=== PATIENT | female | born 1950 | race Caucasian/White ===

== ENCOUNTER 2017-02-08 13:35 | Emergency (ER) | payer MEDICAID, OTHER ==
[~2017-02-08] VITALS: Ht 154.9 cm; Wt 71.0 kg
[~2017-02-08 13:35] MED LIST: CLIN1CAP5 PO; DICL75 PO; MMW SSP; VENTAER INH
[2017-02-08 13:49] VITALS: BP 129/72; PULSE 89; RESP 18; TEMP 98; O2SAT 98
[2017-02-08] MEDS ORDERED: rescue inhaler (13:59)
[2017-02-08] MEDS ORDERED: PAXI20TA PO (13:59)
[2017-02-08] MEDS ORDERED: XANA1TAB2 PO (13:59)
[2017-02-08] MEDS ORDERED: nebulizer (13:59)
--- NOTE | 2017-02-08 14:33 | PD ---
HPI Chief Complaint: Respiratory Symptoms Time Seen by Provider: 14:29 Travel History International Travel<30 days: No Contact w/Intl Traveler<30days: No Traveled to known affect area: No History of Present Illness HPI 66-year-old female with history of hepatitis C, bipolar, COPD presents to the ED for evaluation of dental pain and medication refill. Patient states that she is out of albuterol for her nebulizer as well as her rescue inhaler. She also complains of dental pain. She denies fever, chills, ear pain, sinus congestion, productive cough, difficulty opening and closing her mouth. She states that her PCP no longer takes her insurance (forthe last 2 months.) She states that she has attempted to get an new provider and was told that she has to go to [place]. She states that she is unable to go that far. She states that she was seen in this ED a "few weeks ago" and provided refils. She states that she has been unable to find a dentist to treat her dental problems. PFSH Past Medical History Asthma: No Autoimmune Disease: No Anxiety: Yes Depression: Yes COPD: Yes Cerebrovascular Accident: No Hepatitis: Yes (c) Psychiatric: Yes (BIPOLAR) Respiratory: Yes (copd) Seizures: No Thyroid Disease: No ?: Not Menopausal: Yes Past Surgical History Section: Yes Social History Alcohol Use: Yes (occas. beer) Tobacco Use: No (states quit 6 months ago smoked cigs 1 ppd) Substance Use: No Allergies-Medications (Allergen,Severity, Reaction): Coded Allergies: Codeine (Verified Allergy, Severe, 02/08/17) Penicillin (Verified Allergy, Severe, 02/08/17) Reported Meds & Prescriptions Reported Meds & Active Scripts Active Reported Paxil (Paroxetine HCl) 20 Mg Tab 20 Mg PO DAILY Xanax (Alprazolam) 1 Mg Tab 1 Mg PO Q8H PRN [rescue inhaler] [nebulizer] Review of Systems Except as stated in HPI: all other systems reviewed are Neg Physical Exam Narrative GENERAL: Well-nourished, well-developed white female in no acute distress. SKIN: Focused skin assessment warm/dry. HEAD: Normocephalic. EYES: No scleral icterus. No injection or drainage. NECK: Supple, trachea midline. No JVD or lymphadenopathy. ENT: Pearly sánchez tympanic membranes bilaterally. Oropharynx without erythema, edema or exudate. DENTAL: Multiple broken and chipped teeth. Multiple missing teeth. No malocclusion. Dental caries with erosion of the tooth to the gum line of teeth 20 and 14. Surrounding gingiva is tender, mildly erythematous. No fluctuance. CARDIOVASCULAR: Regular rate and rhythm without murmurs, gallops, or rubs. RESPIRATORY: Breath sounds clear and equal bilaterally. No accessory muscle use. GASTROINTESTINAL: Abdomen soft, non-tender, nondistended. MUSCULOSKELETAL: No cyanosis, or edema. Walks with a normal gait. BACK: Nontender without obvious deformity. No CVA tenderness. Data Data Last Documented VS Vital Signs Date Time Temp Pulse Resp B/P Pulse Ox O2 Delivery O2 Flow Rate FiO2 02/08/17 13:49 98.0 89 18 129/72 98 MDM Medical Decision Making Medical Screen Exam Complete: Yes Emergency Medical Condition: Yes Differential Diagnosis dentalgia versus dental caries versus dental abscess versus medication refill versus other Narrative Course 66-year-old female with history of hepatitis C, bipolar, COPD presents to the ED for evaluation of dental pain and medication refill. Patient states that she is out of albuterol for her nebulizer as well as her rescue inhaler. She also complains of dental pain. She denies fever, chills, ear pain, sinus congestion, productive cough, difficulty opening and closing her mouth. Vitals reviewed. Patient is resting comfortably on the stretcher on PE. No increased work of breathing. ENT exam is unremarkable. Poor dentition overall. There are dental caries with erosion of the tooth and gumline of teeth 20 and 14. Surrounding gingiva is tender, mildly edematous, no fluctuance. Breath sounds clear and equal bilaterally. Patient was prescribed clindamycin 300mg twice a day 7 days , Magic mouthwash and diclofenac. Her albuterol nebulizer treatments and rescue inhaler restrictions were renewed. She is instructed take the medications as prescribed, follow up with the dentist, to reestablish primary care soon as possible. She was provided a list of community resources for dentistry. She indicated understanding of the instructions. She is agreeable to the care plan. She is stable and discharged home. Diagnosis Primary Impression: Dental caries into pulp Additional Impressions: Dentalgia Medication refill Referrals: Primary Care Physician Patient Instructions: Dental Caries (ED), General Instructions Additional Instructions: Take medications as prescribed. Re-establish a primary care provider as soon as possible. Return to the ED for any URGENT or EMERGENT medical condition. Med/Other Pt SpecificInfo: Prescription(s) given Scripts Diclofenac Sodium DR 75 Mg Tabdr75 Mg PO BID #10 TAB Ref 0 Prov:Celestine Carney MD 02/08/17 Avnntgce-Qzyuhklmdoaksqi-Kewqjcart Liq (Magic Mouthwash Adult Liq)120 Ml Susp10 Ml SWISH-SWAL ACHS #120 ML Ref 0 Each 5mL contains: Nystatin 200,000units, Diphenhydramine 4.25mg, Viscous Lidocaine 10mg, Mitchell syrup 0.8 mL Prov:Celestine Carney MD 02/08/17 Clindamycin 150 Mg [id number] Mg PO Q8HR 7 Days Ref 0 Prov:Celestine Carney MD 02/08/17 Albuterol Neb 2.5 Mg/0.5 Ml Neb2.5 Mg NEB TID NEB PRN (SHORTNESS OF BREATH) #90 NEBULE Ref 0 Note: The Albuterol Sulfate Inhalation Solution is concentrated and must be diluted. Read complete instructions carefully before using. Prov:Celestine Carney MD 02/08/17 Albuterol 18 GM Inh (Ventolin Hfa 18 GM Inh)90 Mcg/Act Aer2 Puff INH Q4-6H PRN ( SHORTNESS OF BREATH) #1 INHALER Ref 0 Prov:Celestine Carney MD 02/08/17 Disposition: 01 DISCHARGE HOME Condition: Stable Romina Curran Feb 08, 2017 14:33
[2017-02-08] MEDS ORDERED: MAGICADU2 SWISH-SWAL (14:36)
[2017-02-08] MEDS ORDERED: ALBU.5I NEB (14:36)
[2017-02-08] MEDS ORDERED: VENTAER INH (14:36)
[2017-02-08] MEDS ORDERED: DICL75TA PO (14:36)
[2017-02-08] MEDS ORDERED: CLIN1CAP5 PO (14:36)
== END 2017-02-08 15:11 | disposition home or self-care (01) ==
LOC: PHEFT 13:35
DX: K02.9 Dental caries, unspecified (principal); B19.20 Unspecified viral hepatitis C without hepatic coma; J44.9 Chronic obstructive pulmonary disease, unspecified; F31.9 Bipolar disorder, unspecified; F41.9 Anxiety disorder, unspecified; Z76.0 Encounter for issue of repeat prescription; Z87.891 Personal history of nicotine dependence; Z88.0 Allergy status to penicillin; Z88.5 Allergy status to narcotic agent
CPT/HCPCS: 99282